=== PATIENT | female | born 1990 | race African-American/Black ===

== ENCOUNTER 2020-09-28 12:22 | Emergency (ER) | payer BC, SELFPAY ==
[2020-09-28 12:27] VITALS: BP 123/82; PULSE 95; RESP 18; TEMP 36.5; O2SAT 99
[2020-09-28 12:49] LABS: Bilirubin Small (Negative); Blood Negative (Negative); Clarity Clear (Clear); Glucose Negative (Negative); Ketones 80 mg/dL (Negative); Leukocyte Esterase Negative (Negative); Nitrite Negative (Negative); Specific Gravity >= 1.030 (1.005-1.025); Urobilinogen 0.2 EU/dL (Up TO 0.2)
[2020-09-28] MEDS: Ondansetron 4 MG/2 ML VIAL IVP ×2 (12:50→14:54)
[2020-09-28 12:56] LABS: Abs Immature Grans 0.02 10^3/uL (0.0-0.06); Absolute Basophil Count 0.01 10^3/uL (0.0-0.2); Absolute Lymphocyte Count 0.73 10^3/uL (1.2-3.4); Absolute Monocyte Count 0.27 10^3/uL (0.1-0.8); Absolute Neutrophil Count 4.87 10^3/uL (1.2-6.7); Basophils % 0.2; HCT 33.1 % (36.0-46.0); HGB 9.1 g/dL (11.2-15.7); Immature Grans % 0.3; Lymphocytes % 12.4; MCH 18.6 pg (27.0-33.0); MCHC 27.5 % (32.0-36.0); MCV 67.8 fL (80-95); MPV 8.8 fL (8.0-11.0); Monocytes % 4.6; Neutrophils % 82.5; Nucleated RBC 0 %; Platelet Count 299 10^3/uL (130-400); RBC 4.88 10^6/uL (3.93-5.22); RDW 19.3 % (11.7-14.6); RDW-SD 46.3 fL
[2020-09-28 12:56] LABS: Bacteria Few HPF (Negative); C & S Indicated? No/Sq. Contamination; Casts Negative LPF (Negative); Crystals Negative HPF (Negative); Epithelial Cells Many HPF (Negative); Mucus Moderate (Negative); RBC Negative HPF (0-2); WBC 0-2 HPF (0-5)
[2020-09-28] MEDS: ACETAMINOPHEN 1,000 MG/100 ML BTL 400 MG IVPB (12:57)
[2020-09-28] MEDS: Normal Saline 1,000 ML 1000 ML IV ×2 (12:57→14:05)
--- NOTE | 2020-09-28 12:59 | ED.GENADUL_ITS ---
Discharge Plan Disposition Patient Disposition: HOME Condition: Good Discharge Details Clinical Impression: Leiomyoma, Gastroenteritis, Vomiting Primary Care Provider: Unknown,Unknown ED Provider: Shadi August Home Meds and New Rx's Prescriptions: No Action No Known Home Meds RF: 0 Discharge Instructions Instructions: Ondansetron (By mouth) Additional Instructions: At this time your work-up has returned and it shows evidence of a few concerning etiologies. Your CAT scan shows mild evidence of gastroenteritis which is irritation in your intestines. This may be potentially exacerbated by your marijuana use or it may be unrelated. It is difficult to know. If it is caused by marijuana it is something called cyclic vomiting syndrome taking a hot shower may help your symptoms. Please avoid any fatty or greasy foods. Stick with a easy liquid diet and a bland diet applesauce, bananas, rice for the next few days. Drink plenty of fluids. Take Zofran as needed for nausea. Additionally you have something called a leiomyoma noted in your left uterine wall. It is currently 2.8 cm. This needs to be followed up closely and reeva luated by an OB specialist. Additionally you have a complex right ovary that is slightly enlarged at 2.3 cm. We also recommend a routine follow-up with pelvic ultrasound in the next 4 to 6 weeks for this. 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 Which is where some of your main arteries can compress down into some of the vein in your abdomen which causes some congestion and potential pain and irritation. There is not much to do about this, but it would be beneficial to follow-up closely with your primary care provider in regards to this. If you notice any worsening of your symptoms, or any new symptoms such as vomiting, diarrhea, fever, chills, shortness of breath, chest pain, numbness, weakness, or fainting , please return immediately to the emergency department for reevaluation. Please follow up with your primary care provider as soon as possible for reassessment and reevaluation. As always, it was a pleasure participating in your medical care today. Medical Decision Making 30-year-old -[place] female with past medical history of previous gastric irritation who lives in [place] but is here visiting presents today for abdominal pain and vomiting. The patient states that last night she began vomiting, she has vomited multiple times and has been unable to keep anything down. She denies any sexual intercourse or potential for secondary to her orientation. She admits to mild right lower and mid abdominal pain. She denies any headache. She denies any other sick contacts. She does smoke daily marijuana. She states that she has had symptoms like this in the past, but nothing recently. She denies any IV or illicit drug use. She denies any pre vious abdominal surgeries. No other complaints at this time. The patient does admit to previous improvement of her symptoms with a hot shower, but states that this was not trialed today. No other modifying factors. She denies any vaginal discharge. Physical exam demonstrates mild abdominal tenderness in the right lower and periumbilical region as well as in the epigastric region. No pelvic tenderness. Dry mucous membranes. Nonsurgical appearing abdomen. Suspect that the patient has a component of cyclic vomiting syndrome, however because of the location of her mild pain, we will get a CT scan to rule out appendicitis or gallbladder pathology. Will monitor closely reassess, give antiemetics and rehydrate. 3:01 PM Patient's work-up has returned, no white count bandemia or left shift. Hemoglobin is 9.1. Uncertain if of what her normal level is. Vital signs of normalized after fluids. She denies any significant vaginal bleeding. Electrolytes normal, renal function good. Lipase normal. Urinalysis shows ketones, but no evidence of infection. Patient feeling much better and is tolerating p.o. after Zofran. CT scan has returned and shows multiple small abnormalities. She has mild colonic thickening but this may just be artifact. Symptoms appearing consistent with significant colitis on exam. She also has a mildly enlarged uterus containing a 2.8 cm mass arising from the left uterine wall concerning for leiomyoma. 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 However clinically her symptoms appear more consistent at this time was gastroenteritis and/or mild cyclic vomiting syndrome. With an improvement of her symptoms after Zofran, and no signs of an acute surgical abdomen whatsoever on exam, I do feel that she can be discharged. Symptoms are inconsistent with torsion clinically at this time. I spent notable time discussing all of these findings, the importance of follow-up with both the patient and her over the phone. Discussed red flags for which to return. This time patient will be discharged home. She is traveling home to [place] this evening. We will give her 3 tablets of Zofran 4 mg to go. I have extensively reviewed the treatment plan and discharge instructions with the patient. I have addressed all patient concerns at this time. The patient was made aware of what symptoms to monitor for that would warrant a return to the emergency department. Discussed the plan with the patient, they demonstrate verbal understanding and agreement with our assessment and plan at this time. The documentation in this chart was dictated using [employer] dictation software. Please excuse any dictation errors. FINDINGS: Liver: Normal. No mass. Gallbladder and bile ducts: Normal. No calcified stones. No ductal dilation. Pancreas: Normal. No ductal dilation. Spleen: Normal. No splenomegaly. Adrenal glands: Normal. No mass. Kidneys and ureters: Normal. No hydronephrosis. Stomach and bowel: There is thickening of the wall of the descending and sigmoid colon though it is not distended. Appendix: No evidence of appendicitis. Intraperitoneal space: A small amount of free fluid is seen within the endometrium. Vasculature: The angle between the abdominal aorta and the superior mesenteric artery is low. There is a narrow gap between the SMA and aorta at the level of the left renal vein. Lymph nodes: Unremarkable. No enlarged lymph nodes. Urinary bladder: Unremarkable as visualized. Reproductive: There is a 2.8 cm diameter mass which appears to arise from the left wall of the uterus, likely representing a leiomyoma. There is a 2.3 cm diameter cyst of the right ovary Bones/joints: Unremarkable. No acute fracture. Soft tissues: Unremarkable. IMPRESSION: 1. Thickening of the wall of the colon. This may be artifact due to lack of distention. However, inflammatory bowel disease or other causes of colitis cannot be excluded. 2. Mildly enlarged uterus containing a 2.8 cm diameter mass arising from the left uterine wall. A leiomyoma is suspected. 3. Complex cyst of the right ovary measuring 2.3 cm in diameter. A routine follow-up pelvic ultrasound is recommended in the next 4-6 weeks. 4. Narrowing of the gap between the abdominal aorta and superior mesenteric artery. There is evidence of mass effect on the left renal vein. These anatomic findings may be seen with Nutcracker syndrome. Thank you for allowing us to participate in the care of your patient. Dictated and Authenticated by: Mahendra Jorge MD 09/28/2020 2:23 PM Eastern Time ([place] & [place]) HPI General Date/Time Provider Initiated Documentation: 09/28/20 12:23 . HPI Narrative: 30-year-old -Danish female with past medical history of previous gastric irritation who lives in [place] but is here visiting presents today for abdominal pain and vomiting. The patient states that last night she began vomiting, she has vomited multiple times and has been unable to keep anything down. She denies any sexual intercourse or potential for secondary to her orientation. She admits to mild right lower and mid abdominal pain. She denies any headache. She denies any other sick contacts. She does smoke daily marijuana. She states that she has had symptoms like this in the past, but nothing recently. She denies any IV or illicit drug use. She denies any previous abdominal surgeries. No other complaints at this time. The patient does admit to previous improvement of her symptoms with a hot shower, but states that this was not trialed today. No other modifying factors. She denies any vaginal discharge. Related Data Home Medications Medication Instructions Recorded Confirmed Unknown [No Known Home Meds] 09/28/20 09/28/20 Allergies Allergy/AdvReac Type Severity Reaction Status Date / Time No Known Allergies Allergy Unverified 09/28/20 12:31 General Stated Complaint: Abd Prob DONNA: 3 Review of Systems All systems reviewed & are unremarkable except as noted in HPI and below PFSH Social History Smoking/Tobacco Use Status: Current every day Tobacco Type: cigarettes Smoking risk assessment performed?: Yes Alcohol Intake: never Drug use: Daily Substance use type: marijuana Do you feel safe at home: Yes Do you feel safe in your relationship?: Yes Exam Narrative Exam Narrative: 1.Const: Well-nourished, Well-developed, appearing stated age 2.Eyes: PERRL, no conjunctival injection, and symmetrical lids. 3.ENT: Atraumatic external nose and ears. Dry MM. Neck: Symmetric, trachea midline, No thyromegaly. 4.CVS: +S1/S2, No murmurs or gallops. Peripheral pulses 2+ and equal in all extremities. Brisk capillary refill in all extremities. 5.RESP: Unlabored respiratory effort. Clear to auscultation bilaterally. No wheezes rales or rhonchi 6.GI: Soft, nondistended, mild pain in the right lower periumbilical and epigastric regions. Negative Major sign. No evidence of an acute surgical abdomen. No guarding or rebound. 7.MSK: Normocephalic/Atraumatic, Extremities w/o deformity or ttp No cyanosis or clubbing, Normal movement of all extremities 8.Skin: Warm, Dry. No rashes or lesions. 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 Sensation grossly intact, no focal neurologic deficits. 10.Psych: (AAO) x3. Appropriate mood and affect Course Vital Signs Vital signs: Vital Signs Temperature 36.5 C 09/28/20 12:27 Pulse 95 H 09/28/20 12:27 Respiratory Rate 18 09/28/20 12:27 Blood Pressure 123/82 09/28/20 12:27 Pulse Oximetry 99 09/28/20 12:27 Temperature 36.5 C 09/28/20 12:27 Temperature Source Temporal Artery Scan 09/28/20 12:27 Pulse 95 H 09/28/20 12:27 Respiratory Rate 18 09/28/20 12:27 Respiratory Effort Non-Labored 09/28/20 12:31 Blood Pressure 123/82 09/28/20 12:27 Blood Pressure Position Sitting 09/28/20 12:27 Pulse Oximetry 99 09/28/20 12:27 Oxygen Delivery Method Room Air 09/28/20 12:27 Oxygen Flow Rate 0 09/28/20 12:27 Lab/Test Results Lab/Test Results: Laboratory Tests Range/Units 09/28/20 12:37 Urine Color (Yellow) Yellow Urine Clarity (Clear) Clear Urine pH (5-8) 6.0 Ur Specific [place] (1.005-1.025) >= 1.030 H Urine Protein (Negative) mg/dL 30 H Urine Ketones (Negative) mg/dL 80 H Urine Blood (Negative) Negative Urine Nitrite (Negative) Negative Urine Bilirubin (Negative) Small H Urine Urobilinogen (Up TO 0.2) EU/dL 0.2 Ur Leukocyte Esterase (Negative) Negative Urine RBC (0-2) HPF Negative Urine WBC (0-5) HPF 0-2 Ur Epithelial Cells (Negative) HPF Many Urine Crystals (Negative) HPF Negative Urine Bacteria (Negative) HPF Few Urine Casts (Negative) LPF Negative Urine Mucus (Negative) Moderate Ur Culture Indicated? No/sq. contamination Urine Glucose (Negative) mg/dL Negative POC- Test(urine) Negative
[2020-09-28 13:15] LABS: ALT 18 U/L (14-59); AST 14 U/L (15-37); Albumin 4.3 g/dL (3.4-5.0); Alkaline Phosphatase 52 U/L (46-116); Anion Gap 7.5 mmol/L (3-11); BUN 11 mg/dL (7-18); Bilirubin, Total 0.3 mg/dL (0.2-1.0); CO2 27.5 mmol/L (21.0-32.0); CREATININE 0.7 mg/dL (0.55-1.02); Calcium 9.6 mg/dL (8.5-10.1); Chloride 103 mmol/L (98-107); Glucose 100 mg/dL (74-106); Lipase 123 U/L (73-393); Potassium 3.6 mmol/L (3.5-5.1); Sodium 138 mmol/L (136-145); Total Protein 8.7 g/dL (6.4-8.2)
[2020-09-28] MEDS: Omnipaque 350 MG/ML 100 ML BTL IJ (13:16)
[2020-09-28] MEDS: Normal Saline - Diluent 50 ML VIAL IV (13:16)
[2020-09-28 13:17] LABS: Anisocytosis 2+; Diff Comment Diff Reviewed
[2020-09-28 13:18] LABS: Hypochromasia 3+; Microcytosis 3+; Polychromasia Present
[2020-09-28 13:19] LABS: Poikilocytes 2+
--- NOTE | 2020-09-28 13:26 | DI.CT_ITS ---
EXAM: CT ABDOMEN PELVIS W CLINICAL HISTORY: mid and RLQ abdominal pain TECHNIQUE: Imaging Protocol: Axial computed tomography images with coronal and sagittal reformatted images were created and reviewed CONTRAST MATERIAL: Intravenous: Omnipaque 350 Contrast volume:100 mL Oral: No COMPARISON: No exams were available for comparison FINDINGS: ABDOMEN: Lung Bases: Normal where visualized. Liver: Normal density. No measurable mass. Portal, Superior Mesenteric, and Splenic Veins: Unremarkable. Gallbladder and Biliary Tract: No radiodense calculus or dilation. Pancreas: Normal density, no abnormal calcifications or inflammatory process. Spleen: Normal. Adrenals: No masses seen. Kidneys: Normal size, contour and axis. No radiodense stones or obstructive uropathy. No masses seen. Abdominal Aorta: Abdominal portion non-dilated. The angle between the abdominal aorta and the superio r mesenteric artery is low at the level of the left renal vein which can be seen with nutcracker synd kyler. Bowel: No evidence of bowel obstruction. There is mild thickening of the wall of the descending and sigmoid colon. This may be due to underdistention. No pericolonic stranding is seen around the sharita l but infection/inflammation cannot be excluded. Please correlate clinically. No evidence of append icitis. Peritoneal Cavity: No ascites, collection or mesenteric inflammatory response. No free air. Lymph Nodes: Within normal limits. Bones: Within normal limits for the patient's age. Soft Tissues: Unremarkable. PELVIS: Bladder: Symmetric distention, no gross wall thickening. Reproductive Organs: There is a 2.8 cm mass on the left aspect of the uterus likely reflecting a fibr oid. There is a 2.3 cm right ovarian cyst. The left ovary is unremarkable. Lymph Nodes: Within normal limits. Bones: Within normal limits for the patient's age. IMPRESSION: 1. Thickening of the wall of the descending and sigmoid colon. This may be due to underdistention. Inflammatory infectious process cannot be excluded please correlate clinically. 2. Probable uterine fibroid. 3. 2.3 cm right ovarian cyst. Pelvic ultrasound may be obtained for further evaluation. RADIATION DOSE DELIVERED: 463.6mGy.cm Total DLP DATA REPOSITORY: All CT scans at this facility are submitted to the National Radiology Data Registry (NRDR) Dose Index Registry (DIR) with the [employer] (ACR). RADIATION OPTIMIZATION: All CT scans at this facility use at least one of these dose optimization te chniques: automated exposure control; mA and/or kV adjustment per patient size (includes targeted exa ms where dose is matched to clinical indication); or iterative reconstruction.
[2020-09-28 14:04] VITALS: BP 123/63; PULSE 77; RESP 16; TEMP 36.7; O2SAT 100
--- NOTE | 2020-09-28 14:24 | DI.VRAD_ITS ---
PROCEDURE INFORMATION: Exam: CT Abdomen And Pelvis With Contrast Exam date and time: 09/28/2020 12:46 PM Age: 30 years old Clinical indication: Generalized; Patient HX: Mid and rlq abdominal pain. HX of kidney stones. TECHNIQUE: Imaging protocol: Computed tomography of the abdomen and pelvis with contrast. Radiation optimization: All CT scans at this facility use at least one of these dose optimization techniques: automated exposure control; mA and/or kV adjustment per patient size (includes targeted exams where dose is matched to clinical indication); or iterative reconstruction. Contrast material: OMNI-PAQUE 350; Contrast volume: 100 ml; Contrast route: INTRAVENOUS (IV); COMPARISON: No relevant prior studies available. FINDINGS: Liver: Normal. No mass. Gallbladder and bile ducts: Normal. No calcified stones. No ductal dilation. Pancreas: Normal. No ductal dilation. Spleen: Normal. No splenomegaly. Adrenal glands: Normal. No mass. Kidneys and ureters: Normal. No hydronephrosis. Stomach and bowel: There is thickening of the wall of the descending and sigmoid colon though it is not distended. Appendix: No evidence of appendicitis. Intraperitoneal space: A small amount of free fluid is seen within the endometrium. Vasculature: The angle between the abdominal aorta and the superior mesenteric artery is low. There is a narrow gap between the SMA and aorta at the level of the left renal vein. Lymph nodes: Unremarkable. No enlarged lymph nodes. Urinary bladder: Unremarkable as visualized. Reproductive: There is a 2.8 cm diameter mass which appears to arise from the left wall of the uterus, likely representing a leiomyoma. There is a 2.3 cm diameter cyst of the right ovary Bones/joints: Unremarkable. No acute fracture. Soft tissues: Unremarkable. IMPRESSION: 1. Thickening of the wall of the colon. This may be artifact due to lack of distention. However, inflammatory bowel disease or other causes of colitis cannot be excluded. 2. Mildly enlarged uterus containing a 2.8 cm diameter mass arising from the left uterine wall. A leiomyoma is suspected. 3. Complex cyst of the right ovary measuring 2.3 cm in diameter. A routine follow-up pelvic ultrasound is recommended in the next 4-6 weeks. 4. Narrowing of the gap between the abdominal aorta and superior mesenteric artery. There is evidence of mass effect on the left renal vein. These anatomic findings may be seen with Nutcracker syndrome. Dictated and Authenticated by: Mahendra Jorge MD. Ordering:VON Hsu MD
[2020-09-28] MEDS: Ondansetron O.D.T. 4 MG TABEF, 3 TABS/BTL PO (15:10)
== END 2020-09-28 15:18 | disposition home or self-care (01) ==
PROVIDERS: Emergency Provider Student in an Organized Health Care Education/Training Program
DX: K52.89 Other specified noninfective gastroenteritis and colitis (principal); R11.2 Nausea with vomiting, unspecified; D25.1 Intramural leiomyoma of uterus; R93.5 Abnormal findings on diagnostic imaging of other abdominal regions, including retroperitoneum; F12.10 Cannabis abuse, uncomplicated
CPT/HCPCS: 36415; 80053; 81025; 83690; 96361; 96374; 96375; 96376; 99285; 74177; 81003; 81015; 85025; 99284; J0131; J2405; J3490